=== PATIENT | female | born 1995 | race Caucasian/White ===

== ENCOUNTER 2021-02-26 14:52 | Emergency (ER) | payer OTHER ==
[~2021-02-26] VITALS: Ht 154.9 cm; Wt 91.2 kg
[2021-02-26] MEDS ORDERED: GUAIFENESI100 MG/52 PO (16:51)
[2021-02-26] MEDS ORDERED: ZITHROMAX500 MG PO (16:51)
[2021-02-26] MEDS ORDERED: ZYRTEC10 MG PO (16:51)
== END 2021-02-26 16:57 | disposition home or self-care (01) ==
LOC: ER 14:52
DX: U07.1 COVID-19 (principal); Z3A.14 14 weeks gestation of pregnancy; O26.891 Other specified pregnancy related conditions, first trimester

== ENCOUNTER 2021-05-20 19:55 | Outpatient (CLI) | payer OTHER ==
[~2021-05-20 19:55] MED LIST: GUAIFENESI100 MG/52 PO; ZITHROMAX500 MG PO; ZYRTEC10 MG PO
== END 2021-05-21 10:57 | disposition home or self-care (01) ==
LOC: OBS/DEL 19:55 → LDR 19:58 → OBS/DEL 20:03
PROVIDERS: ATTEND Obstetrics & Gynecology
DX: O47.02 False labor before 37 completed weeks of gestation, second trimester (principal); Z3A.23 23 weeks gestation of pregnancy

== ENCOUNTER 2021-08-16 05:47 | Inpatient (IN) | payer OTHER ==
[~2021-08-16] VITALS: Ht 154.9 cm; Wt 94.3 kg
[2021-08-16] MEDS ORDERED: IRON18 MG (08:46)
[2021-08-16] MEDS ORDERED: PRENATAL TABLE1 EAC1 (08:47)
== END 2021-08-18 16:05 | DRG 798 ==
LOC: OB/GYN 05:47 → LDR 05:47 → OB/GYN 16:08
PROVIDERS: ADMIT Obstetrics & Gynecology; ATTEND Obstetrics & Gynecology
PROC: 10E0XZZ Delivery of Products of Conception, External Approach (ICD-10-PCS; principal; 2021-08-16)
PROC: 0UQMXZZ Repair Vulva, External Approach (ICD-10-PCS; 2021-08-16)
PROC: 4A1HXCZ Monitoring of Products of Conception, Cardiac Rate, External Approach (ICD-10-PCS; 2021-08-16)
PROC: 0UB70ZZ Excision of Bilateral Fallopian Tubes, Open Approach (ICD-10-PCS; 2021-08-17)
DX: O71.82 Other specified trauma to perineum and vulva (principal); Z37.0 Single live birth; O99.820 Streptococcus B carrier state complicating pregnancy; Z3A.39 39 weeks gestation of pregnancy; Z30.2 Encounter for sterilization; Z20.822 Contact with and (suspected) exposure to COVID-19